=== PATIENT | female | born 1990 | race Two or more races ===

== ENCOUNTER 2016-09-09 19:44 | Emergency (ER) | payer BC ==
[~2016-09-09] VITALS: Ht 160 cm; Wt 89.5 kg
[~2016-09-09 19:44] MED LIST: ALBU8.5H3 INH; ASPI-826 PO; ERYTOPOI LEFT EYE; GUAI177L2 PO; HYDR-906 PO; IBUP-1542 PO; IBUP800T25 PO; LORA-777 PO; PRED20TA PO; PRENAT PO
[2016-09-09 20:32] VITALS: Ht 160 cm; Wt 89.5 kg
--- NOTE | 2016-09-09 23:25 | ERD ---
ER Documentation Chief Complaint Date/Time DATE: 09/09/16 TIME: 23:21 Chief Complaint LOW BACK PAIN AND DIZZINESS X 2 DAYS. HPI 25-year-old female presents to emergency department for complaints of left lower back pain started yesterday, patient no cough, slightly stewed up, started to have the pain afterwards. Patient discussed the pain as sharp pain, is worse upon movement accompanied with muscle spasms. Patient denies any incontinence. Patient denies any fever or chills. Patient denies hematuria or dysuria. Patient denies any direct trauma and affected area. Patient also is complaining of dizziness, describes it as lightheadedness, feels groggy, patient has on and off palpitations at times, has numbness and tingling all over the body at times. Patient verbalized being in a lot of stress lately also. Patient denies any chest pain. Patient denies any irregular heartbeat. Patient on exertion or dyspnea ROS All systems reviewed and are negative except as per history of present illness. Medications Home Meds Active Scripts Erythromycin* (Erythromycin* Ophthalmic) 1 Applic Oint, 1 APPLIC LEFT EYE QID for 7 Days, EA Prov:NICOLA GUEVARA PA-C 04/04/16 Aspirin/Acetaminophen/Caffeine (Excedrin Extra Strength Caplet) 1 Each Tablet, 1 EACH PO Q6, #30 TAB Prov:YANET LACEY PA-C 02/15/16 Erythromycin* (Erythromycin* Ophthalmic) 1 Applic Oint, 1 APPLIC LEFT EYE QID for 7 Days, EA Prov:YANET LACEY PA-C 02/15/16 Ibuprofen* (Motrin*) 600 Mg Tab, 600 MG PO Q6, #30 TAB Prov:MARGOT MANDUJANO PA-C 12/09/15 Vhpzzhtxzdd-Vgencvmflxrmljug-UF (Mucinex Severe Congest-Cough Liquid) 177 Ml Liquid, 20 ML PO Q8 for 10 Days, ML Prov:ARA FLORES NP 12/02/15 Hydrocodone Bit-Acetaminophen ([place]) 5-325 Mg Tablet, 1 TAB PO Q4H Y for PAIN, #14 TAB Prov:ARI RENO DO 10/31/15 Ibuprofen* (Motrin*) 800 Mg Tab, 800 MG PO TID, #30 TAB Prov:ARI RENO AAngel DO 10/31/15 Loratadine/Pseudoephedrine (CLARITIN-D 24 HOUR TABLET) 1 Each Tab.er.24h, 1 TAB PO DAILY, #7 TAB Prov:ARI RENO DO 10/31/15 Albuterol Sulfate* (Proair HFA*) 8.5 Gm Hfa.aer.ad, 2 PUFF INH Q4 for WHEEZING for 10 Days, INH Prov:JULIO CÉSAR TORRES MD 01/15/15 Prednisone* (Prednisone*) 20 Mg Tab, 40 MG PO DAILY for 4 Days, TAB START 01/16 Prov:JULIO CÉSAR TORRES MD 01/15/15 Reported Medications Multivit/Min/Fol Ac/Iron/Pren* ( S*) 1 Tab Tab, 1 TAB PO DAILY, TAB 01/14/15 Allergies Allergies: Coded Allergies: No Known Allergies (Verified Allergy, Mild, 01/14/15) PMhx/Soc History of Surgery: Yes (C section) Anesthesia Reaction: No Hx Neurological Disorder: No Hx Respiratory Disorders: Yes (ASTHMA) Hx Cardiac Disorders: No Hx Psychiatric Problems: No Hx Miscellaneous Medical Probl: No Hx Alcohol Use: No Hx Substance Use: No Hx Tobacco Use: No Smoking Status: Never smoker FmHx Family History: No coronary disease, No diabetes, No other Physical Exam Vitals Vital Signs Date Time Temp Pulse Resp B/P Pulse Ox O2 Delivery O2 Flow Rate FiO2 09/09/16 20:32 98.4 82 20 119/79 96 Physical Exam GENERAL: The patient is well developed and appropriate for usual state of health, in no apparent distress. CHEST: Clear to auscultation bilaterally. There are no rales, wheezes or rhonchi. HEART: Regular rate and rhythm. No murmurs, clicks, rubs or gallops. No S3 or S4. ABDOMEN: Soft, nontender and nondistended. Good bowel sounds. No rebound or guarding. No gross peritonitis. No gross organomegaly or masses. No Carrizales sign or McBurney point tenderness. BACK: No midline or flank tenderness. Muscle spasms noted in the paraspinal aspect of the left lumbar spine, able to do full range of motion without any restriction. EXTREMITIES: Equal pulses bilaterally. There is no peripheral clubbing, cyanosis or edema. No focal swelling or erythema. Full range of motion. Grossly neurovascularly intact. NEURO: Alert and oriented. Cranial nerves 2-12 intact. Motor strength in all 4 extremities with 5/5 strength. Sensation grossly intact. Normal speech and gait. Negative Romberg sign. Negative pronator drift. SKIN: There is no apparent rash or petechia. The skin is warm and dry. HEMATOLOGIC AND LYMPHATIC: There is no evidence of excessive bruising or lymphedema. No gross cervical, axillary, or inguinal lymphadenopathy. Result Diagram: [id number]/[id number] Results 24 hrs Laboratory Tests Test 09/09/16 23:20 09/09/16 23:40 09/09/16 23:50 Urine Color LT. YELLOW Urine Clarity CLEAR Urine pH 5.5 Urine Specific [place] >=1.030 Urine Ketones NEGATIVE Urine Nitrite NEGATIVE Urine Bilirubin NEGATIVE Urine Urobilinogen 0.2 E.U./dL Urine Leukocyte Esterase NEGATIVE Urine Hemoglobin NEGATIVE Urine Glucose NEGATIVE% Urine Total Protein NEGATIVE Bedside Urine pH (LAB) 5.0 Bedside Urine Protein (LAB) Negative Bedside Urine Glucose (UA) Negative Bedside Urine Ketones (LAB) Negative Bedside Urine Blood Negative Bedside Urine Nitrite (LAB) Negative Bedside Urine Leukocyte Esterase (L Negative White Blood Count 9.710^3/ul Red Blood Count 4.7010^6/ul Hemoglobin 13.5g/dl Hematocrit 40.4% Mean Corpuscular Volume 86.0fl Mean Corpuscular Hemoglobin 28.7pg Mean Corpuscular Hemoglobin Concent 33.4g/dl Red Cell Distribution Width 11.8% Platelet Count 70807^3/UL Mean Platelet Volume 11.6fl Neutrophils % 60.8% Lymphocytes % 31.5% Monocytes % 6.2% Eosinophils % 1.0% Basophils % 0.2% Nucleated Red Blood Cells % 0.0/100WBC Neutrophils # 5.910^3/ul Lymphocytes # 3.110^3/ul Monocytes # 0.610^3/ul Eosinophils # 0.110^3/ul Basophils # 0.010^3/ul Nucleated Red Blood Cells # 0.010^3/ul Sodium Level 137mmol/L Potassium Level 4.0mmol/L Chloride Level 104mmol/L Carbon Dioxide Level 25mmol/L Anion Gap 12 Blood Urea Nitrogen 10mg/dl Creatinine 0.63mg/dl Glucose Level 98mg/dl Calcium Level 9.8mg/dl Total Bilirubin 1.1mg/dl Direct Bilirubin 0.00mg/dl Indirect Bilirubin 1.1mg/dl Aspartate Amino Transf (AST/SGOT) 27IU/L Alanine Aminotransferase (ALT/SGPT) 21IU/L Alkaline Phosphatase 87IU/L Total Protein 9.3g/dl Albumin 4.8g/dl Globulin 4.50g/dl Albumin/Globulin Ratio 1.06 EKG was done, read by me and is normal sinus rhythm at a rate of74, normal axis , there is no ST changes or changes in the EKG that indicates any cardiac emergencies at this time. Patient's EKG was also reviewed by Dr. Angulo. Impression: no acute findings on EKG Procedures/MDM Medical Decision Making: Patient's pain is most likely consistent with a back muscle strain. There is no suspicion for neurovascular compromise. Patient has intact sensation and circulation of the affected extremity. There is low suspicion for septic arthritis. Patient does not have any fever. Radiology exams of affected area not indicated at this time. Patient's lightheadedness and dizziness nonspecific at this time. There is low suspicion for neurological emergencies at this time since patients neurologic exam is normal. Patient did not have any altered level consciousness, vomiting, changes in balance or memory did not have any head injury.There is low suspicion for cardiopulmonary emergencies at this time. Patient has low risk factors. EKG is normal, there is no changes in the EKG that indicates cardiac emergencies.There is low suspicion for aortic aneurysm, myocardial infarction, pneumothorax, pleural effusion, pulmonary embolism, or any other cardiopulmonary emergencies at this time. Cardiac markers are normal. Disposition: Home. Patient is given prescription for ibuprofen for pain, [place] for severe pain, Flexeril for muscle spasms. Patient was advised to avoid heavy lifting. Patient was advised that if symptoms are worse, numbness, tingling, high fever, unable to move joint, worsening symptoms, to return to emergency department immediately. Otherwise, patient is advised to follow up with the primary care doctor in 5-7 days for reevaluation of symptoms. Departure Diagnosis: Primary Impression: Back pain Back pain location: low back pain Chronicity: acute Back pain laterality: right Sciatica presence: without sciatica Qualified Code: M54.5 - Acute right-sided low back pain without sciatica Additional Impression: Lightheaded Condition: Stable Patient Instructions: Back Pain (Acute Or Chronic), Dizziness, Unk Cause Additional Instructions: . Patient is given prescription for ibuprofen for pain, [place] for severe pain, Flexeril for muscle spasms. Patient was advised to avoid heavy lifting. Patient was advised that if symptoms are worse, numbness, tingling, high fever, unable to move joint, worsening symptoms, to return to emergency department immediately. Otherwise, patient is advised to follow up with the primary care doctor in 5-7 days for reevaluation of symptoms. CRALOS TELLES NP September 09, 2016 23:25
[2016-09-09 23:40] LABS: URINE BLOOD (Dip) POC Negative (NEGATIVE)
[2016-09-10 00:14] LABS: ADD UMIC NO; URINE BILIRUBIN (Dip) NEGATIVE (NEGATIVE); URINE BLOOD (Dip) NEGATIVE (NEGATIVE); URINE COLOR LT. YELLOW (YELLOW); URINE GLUCOSE (Dip) NEGATIVE (NEGATIVE); URINE KETONES (Dip) NEGATIVE (NEGATIVE); URINE LEUKOCYTE ESTERASE (Dip) NEGATIVE (NEGATIVE); URINE NITRITE (Dip) NEGATIVE (NEGATIVE); URINE TOTAL PROTEIN (Dip) NEGATIVE (NEGATIVE); URINE UROBILINOGEN (Dip) 0.2 E.U./dL (0.1-1.0)
[2016-09-10 00:17] LABS: ADD SCAN DIFF NO
[2016-09-10 00:18] LABS: BASOPHILS % 0.2 % (0.0-2.0); EOSINOPHILS # 0.1 10^3/ul (0.0-0.5); HEMATOCRIT 40.4 % (37.0-47.0); HEMOGLOBIN 13.5 g/dl (12.0-16.0); LYMPHOCYTES # 3.1 10^3/ul (0.8-2.9); LYMPHOCYTES % 31.5 % (15.0-51.0); MEAN CORPUSCULAR HEMOGLOBIN 28.7 pg (29.0-33.0); MEAN CORPUSCULAR HGB CONC 33.4 g/dl (32.0-37.0); MEAN PLATELET VOLUME 11.6 fl (7.4-10.4); MONOCYTE # 0.6 10^3/ul (0.3-0.9); MONOCYTES % 6.2 % (0.0-11.0); NEUTROPHIL # 5.9 10^3/ul (1.6-7.5); NEUTROPHILS % 60.8 % (39.0-77.0); PLATELET COUNT 299 10^3/UL (140-415); RED CELL DISTRIBUTION WIDTH 11.8 % (11.5-14.5); WHITE BLOOD COUNT 9.7 10^3/ul (4.8-10.8)
[2016-09-10 00:39] LABS: ALBUMIN 4.8 g/dl (3.3-4.9); ALBUMIN/GLOBULIN RATIO 1.06; BILIRUBIN,INDIRECT 1.1 mg/dl (0-1.1); BILIRUBIN,TOTAL 1.1 mg/dl (0.2-1.3); CALCIUM 9.8 mg/dl (8.4-10.2); CREATININE 0.63 mg/dl (0.44-1.00); TOTAL PROTEIN 9.3 g/dl (6.1-8.1)
[2016-09-10] MEDS ORDERED: IBUP-1542 PO (01:10)
[2016-09-10] MEDS ORDERED: HYDR-906 PO (01:10)
[2016-09-10] MEDS ORDERED: CYCL-319 PO (01:10)
[2016-09-10 01:17] VITALS: BP 136/90; PULSE 94; RESP 18
== END 2016-09-10 01:19 | disposition home or self-care (01) ==
LOC: FTE 19:44
DX: M54.5 Low back pain (principal); J45.909 Unspecified asthma, uncomplicated; R42 Dizziness and giddiness
CPT/HCPCS: 36415; 80053; 81003; 85025; 93005

== ENCOUNTER 2016-12-18 00:15 | Emergency (ER) | payer BC ==
[~2016-12-18] VITALS: Ht 170.2 cm; Wt 92.5 kg
[~2016-12-18 00:15] MED LIST changes: +CYCL-319 PO
[2016-12-18 00:21] VITALS: Ht 170.2 cm; Wt 92.5 kg
[2016-12-18] MEDS ORDERED: GUAI120S26 PO (01:42)
[2016-12-18] MEDS ORDERED: CETI10CA PO (01:42)
[2016-12-18] MEDS ORDERED: FLUT9.9S NASAL (01:42)
[2016-12-18] MEDS ORDERED: IBUP-1542 PO (01:42)
[2016-12-18] MEDS ORDERED: ALBU8.5H3 INH (01:42)
[2016-12-18 01:55] VITALS: BP 128/78; PULSE 73; RESP 19; TEMP 98.2
--- NOTE | 2016-12-18 01:55 | ERD ---
ER Documentation Chief Complaint Date/Time DATE: 12/18/16 TIME: 01:53 Chief Complaint cough w/ on and off fever x 2 days HPI 26-year-old female presents here in emergency department for complaints of cough , runny nose nasal congestion on and off fever for 2 days. Patient has been having dry cough, does not cough up any phlegm or blood. Patient denies any shortness of breath or wheezing. Patient any sick with the same symptoms. Patient did not take any medications to help with symptoms. Patient denies any chest pain. Patient denies any dyspnea on exertion or dyspnea on lying down. Patient denies any dizziness. ROS All systems reviewed and are negative except as per history of present illness. Medications Home Meds Active Scripts Ibuprofen* (Motrin*) 600 Mg Tab, 600 MG PO Q6H Y for PAIN AND OR ELEVATED TEMP, #30 TAB Prov:CARLOS TELLES NP 12/18/16 Albuterol Sulfate* (Proair HFA*) 8.5 Gm Hfa.aer.ad, 2 PUFF INH Q4H Y for WHEEZING AND SOB, #1 INHALER Prov:CARLOS TELLES NP 12/18/16 Fluticasone Propionate (Flonase Allergy Relief) 9.9 Ml [place].susp, 1 SPRAY NASAL BID, #1 BOTTLE TO EACH NOSTRIL Prov:CARLOS TELLES NP 12/18/16 Cetirizine Hcl* (Zyrtec*) 10 Mg Capsule, 10 MG PO DAILY, #30 TAB.CHEW Prov:CARLOS TELLES NP 12/18/16 Ygizdebozyw-B-Qjoycuskpl Hb* (Guaifenesin* DM Syrup) 120 Ml Syrup, 10 ML PO Q4H Y for COUGH, #120 ML Prov:CARLOS TELLES NP 12/18/16 Cyclobenzaprine Hcl* (Cyclobenzaprine Hcl*) 10 Mg Tablet, 10 MG PO TID, #15 TAB Prov:CARLOS TELLES NP 09/10/16 Hydrocodone/Acetaminophen ([place] 5-325 Tablet) 1 Each Tablet, 1 TAB PO Q6H Y for PAIN, #20 TAB Prov:CARLOS TELLES NP 09/10/16 Ibuprofen* (Motrin*) 600 Mg Tab, 600 MG PO Q6H Y for PAIN AND OR ELEVATED TEMP, #30 TAB Prov:CARLOS TELLES MEDICAL BILLING AND CODING INSTRUCTOR 09/10/16 Erythromycin* (Erythromycin* Ophthalmic) 1 Applic Oint, 1 APPLIC LEFT EYE QID for 7 Days, EA Prov:NICOLA GUEVARAC 04/04/16 Aspirin/Acetaminophen/Caffeine (Excedrin Extra Strength Caplet) 1 Each Tablet, 1 EACH PO Q6, #30 TAB Prov:YANET LACEYC 02/15/16 Erythromycin* (Erythromycin* Ophthalmic) 1 Applic Oint, 1 APPLIC LEFT EYE QID for 7 Days, EA Prov:YANET LACEY PA-C 02/15/16 Ibuprofen* (Motrin*) 600 Mg Tab, 600 MG PO Q6, #30 TAB Prov:MARGOT MANDUJANOC 12/09/15 Cmflbjwkmpa-Shdxvurqknhlrpqa-ID (Mucinex Severe Congest-Cough Liquid) 177 Ml Liquid, 20 ML PO Q8 for 10 Days, ML Prov:ARA FLORES MEDICAL BILLING AND CODING INSTRUCTOR 12/02/15 Hydrocodone Bit-Acetaminophen ([place]) 5-325 Mg Tablet, 1 TAB PO Q4H Y for PAIN, #14 TAB Prov:ARI RENO DO 10/31/15 Ibuprofen* (Motrin*) 800 Mg Tab, 800 MG PO TID, #30 TAB Prov:ARCHIE RENOSTJUANS AAngel DO 10/31/15 Loratadine/Pseudoephedrine (CLARITIN-D 24 HOUR TABLET) 1 Each Tab.er.24h, 1 TAB PO DAILY, #7 TAB Prov:ARI RENO DO 10/31/15 Albuterol Sulfate* (Proair HFA*) 8.5 Gm Hfa.aer.ad, 2 PUFF INH Q4 for WHEEZING for 10 Days, INH Prov:JULIO CÉSAR TORRES MD 01/15/15 Prednisone* (Prednisone*) 20 Mg Tab, 40 MG PO DAILY for 4 Days, TAB START 01/16 Prov:JULIO CÉSAR TORRES MD 01/15/15 Reported Medications Multivit/Min/Fol Ac/Iron/Pren* ( S*) 1 Tab Tab, 1 TAB PO DAILY, TAB 01/14/15 Allergies Allergies: Coded Allergies: No Known Allergies (Verified Allergy, Mild, 01/14/15) PMhx/Soc History of Surgery: Yes (C section) Anesthesia Reaction: No Hx Neurological Disorder: No Hx Respiratory Disorders: Yes (ASTHMA) Hx Cardiac Disorders: No Hx Psychiatric Problems: No Hx Miscellaneous Medical Probl: No Hx Alcohol Use: No Hx Substance Use: No Hx Tobacco Use: No Smoking Status: Never smoker FmHx Family History: No coronary disease, No diabetes, No other Physical Exam Vitals Vital Signs Date Time Temp Pulse Resp B/P Pulse Ox O2 Delivery O2 Flow Rate FiO2 12/18/16 00:21 99.5 97 20 120/59 99 Physical Exam GENERAL: The patient is well developed and appropriate for usual state of health, in no apparent distress. CHEST: Clear to auscultation bilaterally. There are no rales, wheezes or rhonchi. HEART: Regular rate and rhythm. No murmurs, clicks, rubs or gallops. No S3 or S4. ABDOMEN: Soft, nontender and nondistended. Good bowel sounds. No rebound or guarding. No gross peritonitis. No gross organomegaly or masses. No Carrizales sign or McBurney point tenderness. BACK: No midline or flank tenderness. EXTREMITIES: Equal pulses bilaterally. There is no peripheral clubbing, cyanosis or edema. No focal swelling or erythema. Full range of motion. Grossly neurovascularly intact. NEURO: Alert and oriented. Cranial nerves 2-12 intact. Motor strength in all 4 extremities with 5/5 strength. Sensation grossly intact. Normal speech and gait. SKIN: There is no apparent rash or petechia. The skin is warm and dry. HEMATOLOGIC AND LYMPHATIC: There is no evidence of excessive bruising or lymphedema. No gross cervical, axillary, or inguinal lymphadenopathy. Results 24 hrs Current Medications Medications (Trade) Dose Ordered Sig/Dianne Route PRN Reason Start Time Stop Time Status Last Admin Dose Admin Ibuprofen (Motrin) 600 mg ONCE ONCE PO 12/18/16 02:00 12/18/16 02:01 12/18/16 01:49 Patient was given medicines for fever control here in the emergency department. After treatment, patient temperature improved and lower. Patient appears well and is hemodynamically stable. Procedures/MDM Medical Decision Making: Patient symptoms are most likely consistent with acute bronchitis, which viral in origin. There is low suspicion for Pneumonia at this time since patients lungs sounds are clear, patient O2 saturation is normal and patient doesnt show any respiratory distress. Radiology exam is not indicated at this time. There is low suspicion for other cardiopulmonary emergencies at this time such as CHF, Pulmonary Embolism, Pneumothorax, Aortic Aneurysm or any other cardiopulmonary emergencies at this time. There is low suspicion for sepsis. Patient appears well and is hemodynamically stable. Fever is controlled with medicines. Disposition: Home. Condition: Stable Prescriptions: Guaifenesin DM Zyrtec ibuprofen albuterol Instructions: Patient is advised to take medications as prescribed. Patient is advised to rest. Patient advised to increase fluid intake, do humidifier at home and if possible, do salt water gargles. Patient is advised that if symptoms are worse, shortness of breath, uncontrolled fever, stridor, vomiting, worst signs and symptoms to return to emergency department immediately. Otherwise, patient is advised to follow up with primary doctor in 5-7 days. Departure Diagnosis: Primary Impression: Acute bronchitis Bronchitis organism: unspecified organism Qualified Code: J20.9 - Acute bronchitis, unspecified organism Condition: Stable Patient Instructions: Bronchitis, No Antibiotic (Adult) CARLOS TELLES NP Dec 18, 2016 01:55
[2016-12-18] MEDS ORDERED: IBUPROFEN 600 MG TAB PO ONE (02:00)
== END 2016-12-18 01:55 | disposition home or self-care (01) ==
LOC: FTE 00:15
DX: J20.9 Acute bronchitis, unspecified (principal); J45.909 Unspecified asthma, uncomplicated; Z79.82 Long term (current) use of aspirin
CPT/HCPCS: Z7502; Z7610; 99283

== ENCOUNTER 2017-10-02 23:43 | Emergency (ER) | END 2017-10-03 00:53 | disposition home or self-care (01) ==

== ENCOUNTER 2018-01-31 20:17 | Emergency (ER) | END 2018-01-31 23:01 | disposition home or self-care (01) ==

== ENCOUNTER 2018-02-18 23:42 | Emergency (ER) | END 2018-02-19 04:18 | disposition home or self-care (01) ==

== ENCOUNTER 2018-04-04 16:49 | Emergency (ER) | END 2018-04-04 17:27 | disposition home or self-care (01) ==

== ENCOUNTER 2018-07-07 20:30 | Emergency (ER) | payer BC ==
[~2018-07-07] VITALS: Wt 96.8 kg
[~2018-07-07 20:30] MED LIST changes: -ALBU8.5H3 INH; +ALBU8.5H8 INH; +AZIT250T PO; +CEPH-443 PO; +CETI10CA PO; -CYCL-319 PO; +CYCL10TA7 PO; +FLUT9.9S NASAL; +GUAI120S26 PO; +HYDR-4011 PO; +HYDR-843 PO; -IBUP800T25 PO; +IBUP800T48 PO; +METO10TA92 PO; +ONDA4TAB14 PO; +SULF1TAB31 PO
[2018-07-07 21:06] VITALS: BP 132/74; PULSE 101; RESP 18
[2018-07-08] MEDS ORDERED: ERYT1OIN6 LEFT EYE (00:17)
--- NOTE | 2018-07-08 00:21 | ERD ---
ER Documentation Chief Complaint Chief Complaint L UPPER EYELID SWELLING X'S 2 DAYS HPI 27-year-old female presents with swelling to her left upper eyelid that she has had for about a week. She has been applying warm compresses but is not getting any better. She has had this in the past and states she had to have it drained and she would like me to drain it. She has no redness or swelling to her eyes. No fevers. No drainage in her eyes. ROS All systems reviewed and are negative except as per history of present illness. Medications Home Meds Active Scripts Erythromycin Base (Erythromycin) 1 Gm Oint...g., 1 APPLIC LEFT EYE QID for 7 Da ys Prov:YANET LACEY PA-C 07/08/18 Albuterol Sulfate* (Proair HFA*) 8.5 Gm Hfa.aer.ad, 2 PUFF INH Q4, #1 INHALER Prov:NICOLA GUEVARA PA-C 04/04/18 Azithromycin* (Zithromax*) 250 Mg Tablet, 250 MG PO .BENNYCK DIRECTED, #6 TAB TAKE 500 MG (2 TABS) THE FIRST DAY THEN 250 MG (1 TAB) DAYS 2-5 Prov:NICOLA GUEVARA PA-C 04/04/18 Metoclopramide* (Reglan*) 10 Mg Tablet, 10 MG PO Q6 PRN for NAUSEA AND/OR VOMITING, #10 TAB Prov:NICOLA GUEVARA PA-C 02/19/18 Ondansetron (Ondansetron Odt) 4 Mg Tab.rapdis, 4 MG PO Q6H PRN for NAUSEA AND/OR VOMITING, #10 TAB Prov:NICOLA GUEVARA PA-C 02/19/18 Cephalexin* (Keflex*) 500 Mg Capsule, 500 MG PO TID for 7 Days, #21 CAP Prov:SIMRAN,FRANCISCO 01/31/18 Ondansetron (Ondansetron Odt) 4 Mg Tab.rapdis, 4 MG PO Q6H PRN for NAUSEA AND/OR VOMITING, #10 TAB Prov:SIMRAN,FRANCISCO 01/31/18 Albuterol Sulfate* (Proair HFA*) 8.5 Gm Hfa.aer.ad, 2 PUFF INH Q4, #1 INHALER Prov:FRANCISCO KHALIL 01/31/18 Cephalexin* (Keflex*) 500 Mg Capsule, 500 MG PO QID for 10 Days, CAP Prov:CARLOS TELLES NP 10/03/17 Sulfamethoxazole/Trimethoprim* (Bactrim Ds* Tablet) 1 Each Tablet, 1 TAB PO BID, #20 TAB Prov:CARLOS TELLES NP 10/03/17 Hydroxyzine Hcl* (Hydroxyzine Hcl*) 25 Mg Tablet, 25 MG PO Q8H PRN for ITCHING, #30 TAB Prov:CARLOS TELLES NP 10/03/17 Ibuprofen* (Motrin*) 600 Mg Tab, 600 MG PO Q6H PRN for PAIN AND OR ELEVATED TEMP, #30 TAB Prov:CARLOS TELLES NP 12/18/16 Albuterol Sulfate* (Proair HFA*) 8.5 Gm Hfa.aer.ad, 2 PUFF INH Q4H PRN for WHEEZING AND SOB, #1 INHALER Prov:CARLOS TELLES NP 12/18/16 Fluticasone Propionate (Flonase Allergy Relief) 9.9 Ml [place].susp, 1 SPRAY NASAL BID, #1 BOTTLE TO EACH NOSTRIL Prov:CARLOS TELLES NP 12/18/16 Cetirizine Hcl* (Zyrtec*) 10 Mg Capsule, 10 MG PO DAILY, #30 TAB.CHEW Prov:CARLOS TELLES NP 12/18/16 Hxjxrnheiot-V-Qempypzohp Hb* (Guaifenesin* DM Syrup) 120 Ml Syrup, 10 ML PO Q4H PRN for COUGH, #120 ML Prov:CARLOS TELLES NP 12/18/16 Cyclobenzaprine Hcl* (Cyclobenzaprine Hcl*) 10 Mg Tablet, 10 MG PO TID, #15 TAB Prov:CARLOS TELLES NP 09/10/16 Hydrocodone/Acetaminophen ([place] 5-325 Tablet) 1 Each Tablet, 1 TAB PO Q6H PRN for PAIN, #20 TAB Prov:CARLOS TELLES NP 09/10/16 Ibuprofen* (Motrin*) 600 Mg Tab, 600 MG PO Q6H PRN for PAIN AND OR ELEVATED TEMP, #30 TAB Prov:BOLACARLOS YU NP 09/10/16 Erythromycin* (Erythromycin* Ophthalmic) 1 Applic Oint, 1 APPLIC LEFT EYE QID for 7 Days, EA Prov:NICOLA GUEVARAC 04/04/16 Aspirin/Acetaminophen/Caffeine (Excedrin Extra Strength Caplet) 1 Each Tablet, 1 EACH PO Q6, #30 TAB Prov:YANET LACEY PA-C 02/15/16 Erythromycin* (Erythromycin* Ophthalmic) 1 Applic Oint, 1 APPLIC LEFT EYE QID for 7 Days, EA Prov:YANET LACEY PA-C 02/15/16 Ibuprofen* (Motrin*) 600 Mg Tab, 600 MG PO Q6, #30 TAB Prov:MARGOT MANDUJANOC 12/09/15 Ukpgzewjqoa-Bwoopihocomoqevq-CD (Mucinex Severe Congest-Cough Liquid) 177 Ml Liquid, 20 ML PO Q8 for 10 Days, ML Prov:ARA FLORES NP 12/02/15 Hydrocodone Bit-Acetaminophen ([place]) 5-325 Mg Tablet, 1 TAB PO Q4H PRN for PAIN, #14 TAB Prov:ARI RENO DO 10/31/15 Ibuprofen* (Motrin*) 800 Mg Tab, 800 MG PO TID, #30 TAB Prov:ARI RENO DO 10/31/15 Loratadine/Pseudoephedrine (CLARITIN-D 24 HOUR TABLET) 1 Each Tab.er.24h, 1 TAB PO DAILY, #7 TAB Prov:ARI RENO DO 10/31/15 Albuterol Sulfate* (Proair HFA*) 8.5 Gm Hfa.aer.ad, 2 PUFF INH Q4 for WHEEZING for 10 Days, INH Prov:JULIO CÉSAR TORRES MD 01/15/15 Prednisone* (Prednisone*) 20 Mg Tab, 40 MG PO DAILY for 4 Days, TAB START 01/16 Prov:JULIO CÉSAR TORRES MD 01/15/15 Reported Medications Multivit/Min/Fol Ac/Iron/Pren* ( S*) 1 Tab Tab, 1 TAB PO DAILY, TAB 01/14/15 Allergies Allergies: Coded Allergies: No Known Allergies (Verified Allergy, Mild, 04/04/18) PMhx/Soc History of Surgery: Yes (c section) Anesthesia Reaction: No Hx Neurological Disorder: No Hx Respiratory Disorders: Yes (asthma) Hx Cardiac Disorders: No Hx Psychiatric Problems: No Hx Miscellaneous Medical Probl: No Hx Alcohol Use: No Hx Substance Use: No Hx Tobacco Use: No FmHx Family History: No diabetes Physical Exam Vitals Vital Signs Date Temp Pulse Resp B/P (MAP) Pulse Ox O2 O2 Flow FiO2 Time Delivery Rate 07/07/18 98.6 101 18 132/74 98 21:06 (93) Physical Exam INITIAL VITAL SIGNS: Reviewed by me GENERAL: Awake, alert and oriented x 4, well appearing, nontoxic, speaking in full sentences. No acute distress HEAD: Atraumatic NECK: Supple. No masses. Full range of motion. No meningismus. No midline tenderness. EYES: EOMI. PERRL. Stye on left upper eye lid RESPIRATORY: Clear to auscultation bilaterally. Symmetric chest wall rise. No wheezing or rales. No accessory muscle use. CV: Regular rate and rhythm. No murmurs, rubs, or gallops. Procedures/MDM Patient has a stye. Recommended warm compresses. Erythromycin ophthalmic ointment given outpatient follow-up with [facility] given. Patient counseled regarding my diagnostic impression and care plan. Prior to discharge all questions answered. Pt agrees with treatment plan and understands strict return precautions. Pt is instructed to follow up with primary care provider within 24-48 hours. Precautionary instructions provided including instructions to return to the ER if not improving or for any worsening or changing symptoms or concerns. Departure Diagnosis: Primary Impression: Stye Condition: Stable Patient Instructions: Sty Referrals: [facility] Hours: Fri - Fri 9:00 AM - 5:00 PM Additional Instructions: Call your primary care doctor TOMORROW for an appointment during the next 1-2 days.See the doctor sooner or return here if your condition worsens before your appointment time. YANET LACEY PA-C Jul 08, 2018 00:21
== END 2018-07-08 00:43 | disposition home or self-care (01) ==
LOC: FTE 20:30
DX: H00.014 Hordeolum externum left upper eyelid (principal); J45.909 Unspecified asthma, uncomplicated; Z79.82 Long term (current) use of aspirin
CPT/HCPCS: 99283

== ENCOUNTER 2018-07-26 00:20 | Emergency (ER) | payer BC ==
[~2018-07-26] VITALS: Ht 160 cm; Wt 98.5 kg
[~2018-07-26 00:20] MED LIST changes: +ERYT1OIN6 LEFT EYE
[2018-07-26 00:31] VITALS: Ht 160 cm; Wt 98.5 kg
[2018-07-26] MEDS ORDERED: HYDR25SU23 PR (05:17)
[2018-07-26] MEDS ORDERED: HYDR-4011 PO (05:17)
[2018-07-26] MEDS ORDERED: HYDROCODONE/APAP (5/325) TAB PO ONE (05:30)
[2018-07-26 05:36] VITALS: BP 128/70; PULSE 88; RESP 16
--- NOTE | 2018-07-26 07:40 | ERD ---
ER Documentation Chief Complaint Chief Complaint painful abscess around her rectum x 2 days HPI This is a 27-year-old 33-week gestational female who presents to the ED with complaints of a painful bump near her rectum area. She states the area first started feeling itchy a few days ago and and has since noticed an increasingly enlarged bump in the same area. Pain is worse when sitting or straining. She denies any constipation. Denies any abdominal pain, nausea, vomiting or any other symptoms. Patient denies any history of same. ROS All systems reviewed and are negative except as per history of present illness. Medications Home Meds Active Scripts Hydrocortisone Acetate (Anusol-Hc) 25 Mg Supp.rect, 1 SUPP [place] BID PRN for HEMORROID PAIN/ITCHING, #12 SUPP.RECT Prov:MONICA HOWARD PA-C 07/26/18 Erythromycin Base (Erythromycin) 1 Gm Oint...g., 1 APPLIC LEFT EYE QID for 7 Days Prov:YANET LACEY PA-C 07/08/18 Albuterol Sulfate* (Proair HFA*) 8.5 Gm Hfa.aer.ad, 2 PUFF INH Q4, #1 INHALER Prov:NICOLA GUEVARA PA-C 04/04/18 Azithromycin* (Zithromax*) 250 Mg Tablet, 250 MG PO .CANDI DIRECTED, #6 TAB TAKE 500 MG (2 TABS) THE FIRST DAY THEN 250 MG (1 TAB) DAYS 2-5 Prov:NICOLA GUEVARA PA-C 04/04/18 Metoclopramide* (Reglan*) 10 Mg Tablet, 10 MG PO Q6 PRN for NAUSEA AND/OR VOMITING, #10 TAB Prov:NICOLA GUEVARA PA-C 02/19/18 Ondansetron (Ondansetron Odt) 4 Mg Tab.rapdis, 4 MG PO Q6H PRN for NAUSEA AND/OR VOMITING, #10 TAB Prov:NICOLA GUEVARA PA-C 02/19/18 Cephalexin* (Keflex*) 500 Mg Capsule, 500 MG PO TID for 7 Days, #21 CAP Prov:SIMRANFRANCISCO 01/31/18 Ondansetron (Ondansetron Odt) 4 Mg Tab.rapdis, 4 MG PO Q6H PRN for NAUSEA AND/OR VOMITING, #10 TAB Prov:SIMRAN,FRANCISCO 01/31/18 Albuterol Sulfate* (Proair HFA*) 8.5 Gm Hfa.aer.ad, 2 PUFF INH Q4, #1 INHALER Prov:SIMRAN,FRANCISCO 01/31/18 Cephalexin* (Keflex*) 500 Mg Capsule, 500 MG PO QID for 10 Days, CAP Prov:CARLOS TELLES NP 10/03/17 Sulfamethoxazole/Trimethoprim* (Bactrim Ds* Tablet) 1 Each Tablet, 1 TAB PO BID, #20 TAB Prov:CARLOS TELLES NP 10/03/17 Hydroxyzine Hcl* (Hydroxyzine Hcl*) 25 Mg Tablet, 25 MG PO Q8H PRN for ITCHING, #30 TAB Prov:CARLOS TELLES NP 10/03/17 Ibuprofen* (Motrin*) 600 Mg Tab, 600 MG PO Q6H PRN for PAIN AND OR ELEVATED TEMP, #30 TAB Prov:CARLOS TELLES NP 12/18/16 Albuterol Sulfate* (Proair HFA*) 8.5 Gm Hfa.aer.ad, 2 PUFF INH Q4H PRN for WHEEZING AND SOB, #1 INHALER Prov:CARLOS TELLES NP 12/18/16 Fluticasone Propionate (Flonase Allergy Relief) 9.9 Ml [place].susp, 1 SPRAY NASAL BID, #1 BOTTLE TO EACH NOSTRIL Prov:CARLOS TELLES NP 12/18/16 Cetirizine Hcl* (Zyrtec*) 10 Mg Capsule, 10 MG PO DAILY, #30 TAB.CHEW Prov:CARLOS TELLES NP 12/18/16 Kehruqhgciy-V-Xgirlfruvd Hb* (Guaifenesin* DM Syrup) 120 Ml Syrup, 10 ML PO Q4H PRN for COUGH, #120 ML Prov:CARLOS TELLES NP 12/18/16 Cyclobenzaprine Hcl* (Cyclobenzaprine Hcl*) 10 Mg Tablet, 10 MG PO TID, #15 TAB Prov:CARLOS TELLES REVENUE CYCLE ANALYST 09/10/16 Hydrocodone/Acetaminophen ([place] 5-325 Tablet) 1 Each Tablet, 1 TAB PO Q6H PRN for PAIN, #20 TAB Prov:CARLOS TELLES REVENUE CYCLE ANALYST 09/10/16 Ibuprofen* (Motrin*) 600 Mg Tab, 600 MG PO Q6H PRN for PAIN AND OR ELEVATED TEMP, #30 TAB Prov:CARLOS TELLES REVENUE CYCLE ANALYST 09/10/16 Erythromycin* (Erythromycin* Ophthalmic) 1 Applic Oint, 1 APPLIC LEFT EYE QID for 7 Days, EA Prov:NICOLA GUEVARA PA-C 04/04/16 Aspirin/Acetaminophen/Caffeine (Excedrin Extra Strength Caplet) 1 Each Tablet, 1 EACH PO Q6, #30 TAB Prov:YANET LACEY PA-C 02/15/16 Erythromycin* (Erythromycin* Ophthalmic) 1 Applic Oint, 1 APPLIC LEFT EYE QID for 7 Days, EA Prov:YANET LACEY PA-C 02/15/16 Ibuprofen* (Motrin*) 600 Mg Tab, 600 MG PO Q6, #30 TAB Prov:MARGOT MANDUJANO PA-C 12/09/15 Txzjqnnrmnn-Lyiktqhhjnosdkuu-ED (Mucinex Severe Congest-Cough Liquid) 177 Ml Liquid, 20 ML PO Q8 for 10 Days, ML Prov:ARA FLORES REVENUE CYCLE ANALYST 12/02/15 Hydrocodone Bit-Acetaminophen ([place]) 5-325 Mg Tablet, 1 TAB PO Q4H PRN for PAIN, #14 TAB Prov:ARI RENO DO 10/31/15 Ibuprofen* (Motrin*) 800 Mg Tab, 800 MG PO TID, #30 TAB Prov:ARCHIE RENOSTNIKA AAngel DO 10/31/15 Loratadine/Pseudoephedrine (CLARITIN-D 24 HOUR TABLET) 1 Each Tab.er.24h, 1 TAB PO DAILY, #7 TAB Prov:ARCHIE RENOSTNIKA AAngel DO 10/31/15 Albuterol Sulfate* (Proair HFA*) 8.5 Gm Hfa.aer.ad, 2 PUFF INH Q4 for WHEEZING for 10 Days, INH Prov:JULIO CÉSAR TORRES MD 01/15/15 Prednisone* (Prednisone*) 20 Mg Tab, 40 MG PO DAILY for 4 Days, TAB START 01/16 Prov:JULIO CÉSAR TORRES MD 01/15/15 Reported Medications Multivit/Min/Fol Ac/Iron/Pren* ( S*) 1 Tab Tab, 1 TAB PO DAILY, TAB 01/14/15 Allergies Allergies: Coded Allergies: No Known Allergies (Verified Allergy, Mild, 04/04/18) PMhx/Soc History of Surgery: Yes (c section) Anesthesia Reaction: No Hx Neurological Disorder: No Hx Respiratory Disorders: Yes (asthma) Hx Cardiac Disorders: No Hx Psychiatric Problems: No Hx Miscellaneous Medical Probl: No Hx Alcohol Use: No Hx Substance Use: No Hx Tobacco Use: No Smoking Status: Never smoker Physical Exam Vitals Vital Signs Date Temp Pulse Resp B/P (MAP) Pulse Ox O2 O2 Flow FiO2 Time Delivery Rate 07/26/18 98.0 88 16 128/70 99 Room Air 05:36 (89) 07/26/18 98.0 114 20 134/76 98 00:31 (95) Physical Exam Const: No acute distress Head: Atraumatic Eyes: Normal Conjunctiva ENT: Normal External Ears, Nose and Mouth. Abd: Soft, non tender, non distended. Normal bowel sounds Skin: + Palpable 3 cm edematous nodule near the anal verge, consistent with an external hemorrhoid. Moderate pain with palpation. No surrounding erythema. No discharge. Back: No midline or flank tenderness Neur: Awake and alert Psych: Normal Mood and Affect Results 24 hrs Current Medications Medications Dose Sig/Dianne Start Time Status Last (Trade) Ordered Route PRN Stop Time Admin Dose Reason Admin 1 tab ONCE ONCE 07/26/18 DC 07/26/18 Acetaminophen PO 05:30 05:18 / 07/26/18 05:31 Hydrocodone Bitart ([place] (5/325)) Procedures/MDM 27-year-old 33-week gestational female presents with an external, painful hemorrhoid for the past 2 days. There is no evidence of anal abscess, perirectal abscess, fissures, fistula, or any other infectious process. No need for incision and drainage at this time. Patient will be treated on an outpatient basis with a prescription for Anusol and laxatives. I recommended soaking in a warm tub for 10-15 minutes 4 times a day. Pain here was controlled status post one tablet of [place] which patient requested. I recommend following up with either her regular doctor or PACS SPECIALIST in 1 week, otherwise return to the ED for any new or worsening symptoms. Departure Diagnosis: Primary Impression: External hemorrhoid Condition: Stable Patient Instructions: Hemorrhoids Referrals: [facility] YOU HAVE RECEIVED A MEDICAL SCREENING EXAM AND THE RESULTS INDICATE THAT YOU DO NOT HAVE A CONDITION THAT REQUIRES URGENT TREATMENT IN THE EMERGENCY DEPARTMENT. FURTHER EVALUATION AND TREATMENT OF YOUR CONDITION CAN WAIT UNTIL YOU ARE SEEN IN YOUR DOCTORS OFFICE WITHIN THE NEXT 1-2 DAYS. IT IS YOUR RESPONSIBILITY TO MAKE AN APPOINTMENT FOR FOLOW-UP CARE. IF YOU HAVE A PRIMARY DOCTOR --you should call your primary doctor and schedule an appointment IF YOU DO NOT HAVE A PRIMARY DOCTOR YOU CAN CALL OUR PHYSICIAN REFERRAL HOTLINE AT IF YOU CAN NOT AFFORD TO SEE A PHYSICIAN YOU CAN CHOSE FROM THE FOLLOWING [facility] [address] [facility] [address] [facility] [facility] [address] [facility] [facility] [address] [facility] [address] [facility]. [facility]. [address] Additional Instructions: Your physical exam is most consistent with a thrombosed external hemorrhoid. I recommend applying the ointment at least twice a day for the next 1 week. I also recommend soaking in warm water baths for 10 minutes for 4 times a day. This ultimately needs to be removed by general surgeon. Follow-up with your regular doctor for referral to a general surgeon. Return to the ED for any new or worsening symptoms. MONICA HOWARD PA-C Jul 26, 2018 07:34
== END 2018-07-26 05:36 | disposition home or self-care (01) ==
LOC: FTE 00:20
DX: O99.613 Diseases of the digestive system complicating pregnancy, third trimester (principal); K64.4 Residual hemorrhoidal skin tags; O99.513 Diseases of the respiratory system complicating pregnancy, third trimester; J45.909 Unspecified asthma, uncomplicated; Z3A.33 33 weeks gestation of pregnancy
CPT/HCPCS: 99284

== ENCOUNTER 2018-08-10 02:19 | Inpatient (IN) | payer BC, MEDICAID ==
[~2018-08-10] VITALS: Ht 160 cm; Wt 98.5 kg
[~2018-08-10 02:19] MED LIST changes: +HYDR25SU23 PR
[2018-08-10 02:37] VITALS: Ht 160 cm; Wt 98.5 kg
[2018-08-10 02:38] VITALS: BP 124/80; PULSE 88; RESP 20
[2018-08-10] MEDS: LACTATED RINGER'S 1,000 ML IV SCH ×3 (03:58→17:42)
--- NOTE | 2018-08-10 07:51 | HP ---
Date/Time of Note Date/Time of Note DATE: 08/10/18 TIME: 07:50 OB - History Hx of Present Free Text/Dictation @37+wks GA in early labor previous c/section : 2 Para: 1 Care: Good Care Ultrasounds: Normal mid trimester US Obstetrical Complications: None Medical Complications: None Past Family/Social History * Past Medical, Surgical, Family and Obstetric Histories reviewed from chart. OB Admission Exam Vital Signs Vital Signs Vital Signs Date Temp Pulse Resp B/P (MAP) Pulse Ox O2 O2 Flow FiO2 Time Delivery Rate 08/10/18 97.7 88 20 124/80 Room Air 02:38 (95) Physical Exam Abdomen: WNL Extremities: Normal Cervical Dilatation: None Effacement: 0% Station: Ballotable Membranes: Intact Heart Rate: 140's Accelerations: Accelerations Present Varibility: Moderate Contractions on Admission: 6-10 Minutes Apart Last 72 hours Lab Results CBC & BMP 08/10/18 03:50 OB Assessment/Plan Reason for admission: observation Other Assessment: PMH denies PSH previous c/s Plan: Expectant Management Other plan: IV hydration 24 hr observation SRIDHAR WOOD M.D. Aug 10, 2018 07:51
[2018-08-10] MEDS ORDERED: ACETAMINOPHEN 325 MG TAB PO PRN ×2 (09:00)
[2018-08-10] MEDS: CEFAZOLIN 2 GM/50 ML (PMX) 50 ML IVPB SCH ×2 (12:46→22:39)
[2018-08-10] MEDS: FERROUS SULFATE (EC) 325 MG TAB PO SCH (15:00)
[2018-08-10] MEDS: PRENATAL VITAMIN PO SCH (15:00)
[2018-08-11] MEDS: LACTATED RINGER'S 1,000 ML IV SCH ×2 (02:02→09:52)
[2018-08-11] MEDS: CEFAZOLIN 2 GM/50 ML (PMX) 50 ML IVPB SCH ×2 (05:59→14:02)
[2018-08-11] MEDS: FERROUS SULFATE (EC) 325 MG TAB PO SCH (09:51)
[2018-08-11] MEDS: PRENATAL VITAMIN PO SCH (09:51)
--- NOTE | 2018-08-12 05:37 | PREOPHP ---
DATE OF ADMISSION: 08/10/2018 HISTORY OF PRESENT ILLNESS: This is a 27-year-old lady, 2, para 1. Her EDC 09/08/2018 at 35 -5/7 weeks, admitted to labor and delivery area for observation. This patient complains of lower abd ominal pains and low back pains that started about few hours prior to admission and got worse up to t he time of admission. She had care in my [place] office and the care was uneventfu l. She had 1 previous section. PAST PERSONAL HISTORY: No history of TB. The patient has a history of asthma. ALLERGIES: NONE. GYNECOLOGIC HISTORY: She had menarche at the age of 12, every 28 days interval, 3 to 4 days duration and moderate in amount. FAMILY HISTORY: Mother has diabetes, hypertension and heart disease. OBSTETRIC HISTORY: She is 2, para 1. Her first delivery was in 2014 by . REVIEW OF SYSTEMS: CARDIOVASCULAR: No chest pains. RESPIRATORY: No cough. GASTROINTESTINAL: No diarrhea. No vomiting. GENITOURINARY: No dysuria. PHYSICAL EXAMINATION: GENERAL: Reveals a conscious, coherent lady and in no acute distress. VITAL SIGNS: Blood pressure 120/80, pulse rate 80 per minute, respirations 16 per minute. BREASTS, HEART AND LUNGS: Within normal limits. ABDOMEN: Soft. No organomegaly. Fundic height is 35 cm. heart tones are 140 per minute. PELVIC: Revealed the cervix to be closed, station floating in cephalic presentation with the bag of water intact. EXTREMITIES: No pedal edema. ADMITTING DIAGNOSIS: A 35-5/7 weeks' intrauterine with labor, rule out urinary tra ct infection. The patient had a urine test and showed urinary tract infection. The patient was planned to have IV hydration and to be given IV antibiotics. The plans were explaine d to the patient and she understood everything totally. The risks, benefits and alternatives were di scussed with her as well. Dictated By: FERNANDO ABDI/AMGY Conf#: [id number] DID#: [id number]
--- NOTE | 2018-08-12 05:49 | DS ---
DATE OF ADMISSION: 08/10/2018 DATE OF DISCHARGE: 08/11/2018 This is a 27-year-old lady, 2, para 1, EDC of 09/08/2018 at 35 and 5/7 weeks, admitted for ob servation. HISTORY OF PRESENT ILLNESS: See dictated history and physical. PHYSICAL EXAMINATION: See dictated history and physical. ADMITTING DIAGNOSES: 1. A 35 and 5/7 weeks intrauterine . 2. Rule out labor. 3. Rule out urinary tract infection. HOSPITAL COURSE: The patient had urine test and showed urinary tract infection. She was having mild irregular contractions. She was given IV hydration. She was given IV antibiotics. She received 4 doses of IV antibiotics and she felt well. Contractions disappeared and the pain had disappeared, so she was discharged home on 08/11/2018 on general diet and activity was restricted. She was counsele d. She was instructed. She was told to continue to take her iron and vitamins at home. She was natan d to come back to the hospital if there is any problem or concern. FINAL DIAGNOSES: 1. A 35 and 6/7 weeks' intrauterine . 2. Urinary tract infection. 3. labor. 4. One previous section. Dictated By: FERNANDO ABDI/MAGY Conf#: [id number] DID#: [id number]
== END 2018-08-11 15:40 | disposition home or self-care (01) | DRG 832 ==
LOC: OBT 02:19 → L-D 02:21 → MERGE 07:30 → OBT 08:37 → PP1 14:51
PROVIDERS: ADMIT Obstetrics & Gynecology; ATTEND Obstetrics & Gynecology
DX: O23.43 Unspecified infection of urinary tract in pregnancy, third trimester (principal); O47.03 False labor before 37 completed weeks of gestation, third trimester; Z3A.35 35 weeks gestation of pregnancy
CPT/HCPCS: 36415; 76815; 76818; 81001; 85025; 87086; 96360; 96361; G0463; J0690; J7120

== ENCOUNTER 2018-08-31 18:56 | Inpatient (IN) | payer BC ==
[~2018-08-31] VITALS: Ht 160 cm; Wt 99.3 kg
[~2018-08-31 18:56] MED LIST changes: +GUAI120S25 PO; -GUAI120S26 PO; +OXYTOCIN 30 UNITS/LR 500 ML BAG IV ONE
[2018-08-31] MEDS ORDERED: LACTATED RINGER'S 1,000 ML IV SCH ×2 (19:19→22:58)
--- NOTE | 2018-08-31 19:20 | TRIAGE ---
OB Triage Datetime Report Generated by CPN: 08/31/2018 19:20 Datetime: 08/31/2018 19:05 EGA: 38.6 Datetime: 08/31/2018 19:00 Assessment Type: Triage Maternal Assessment Level of Consciousness: Fully Conscious DTR's/Clonus: DTRs 2+; No Clonus Headache: Denies Blurred Vision: No Respiratory Effort: Unlabored; Regular Rhythm; Equal Expansion Breath Sounds, Left: Clear and Equal Breath Sounds, Right: Clear and Equal Nausea/Vomiting: Denies RUQ Epigastric Pain: Denies Lower Extremities Edema: None Degree: None Upper Extremities Edema: None Degree: None Facial Edema: None Fall Risk Assessment History of Falling: (0) No Secondary Diagnosis: (0) No Ambulatory Aid: (0) Bedrest/Nurse Assist IV Therapy: (0) No Gait: (0) Normal/Bedrest/Immobile Mental Status: (0) Oriented to Own Ability Fall Score: 0 Fall Risk Score Definition: No Risk: No action required Datetime: 08/31/2018 18:57 Time of Arrival: 08/31/2018 18:57 Arrived By: Wheelchair Arrived From: Home Chief Complaint: PT CAME IN C/O SROM SINCE 11:30AM AND HAVING UC'S SINCE THIS AM Movement: Present Contractions: Irregular Time Contractions Began: 08/31/2018 11:30 Contractions: 5-6 Rupture of Membranes: Ruptured Vaginal Discharge: Denies Recent Sexual Intercouse: Denies Abdominal Trauma: Not Applicable Additional Patient Complaints: NONE Time Provider Notified: 08/31/2018 19:10 Provider Notified: JERMAINE Initial Plan: PT ADMITTED
[2018-08-31 19:21] VITALS: BMI 31.3
[2018-08-31] MEDS ORDERED: CARBOPROST 250 MCG INJ IM PRN ×2 (19:30→23:00)
[2018-08-31] MEDS ORDERED: CEFAZOLIN 2 GM/50 ML (PMX) 50 ML IVPB SCH (19:30)
[2018-08-31] MEDS ORDERED: OXYTOCIN 30 UNITS/LR 500 ML IV PRN ×2 (19:30→23:00)
[2018-08-31] MEDS ORDERED: MISOPROSTOL 200 MCG TAB PR PRN ×2 (19:30→23:00)
[2018-08-31] MEDS ORDERED: METHYLERGONOVINE 0.2 MG INJ IM PRN ×2 (19:30→23:00)
[2018-08-31 19:57] VITALS: Ht 160 cm; Wt 99.3 kg
[2018-08-31 20:00] VITALS: BP 121/82; PULSE 89; RESP 18
--- NOTE | 2018-08-31 21:35 | PREOPHP ---
DATE OF ADMISSION: 08/31/2018 HISTORY OF PRESENT ILLNESS: This is a 27-year-old lady, 2, para 1, EDC 09/08/2018. She is a bout 38 and 6/7 weeks , admitted to labor and delivery area in labor. She has spontaneous ru ptured bag of water at 11:30 a.m. on 08/31/2018 followed by contractions. She started to have contra ctions a few hours prior to admission and got worse up to the time of admission. She is having moder ate to severe lower abdominal pains and low back pains. She had care in my [place] office a nd the care was uneventful. PAST PERSONAL HISTORY: No history of diabetes, TB, asthma. ALLERGIES: NO ALLERGY. SOCIAL HISTORY: The patient does not smoke. She does not drink. MEDICATIONS: She does not take any drugs except her iron and vitamins. GYNECOLOGIC HISTORY: She had menarche at the age of 12, every 28 days interval, 3 to 4 days duration , and moderate in amount. FAMILY HISTORY: Noncontributory. Mother has diabetes, hypertension and heart disease. She is 2, para 1. Her first delivery was by in 2014. REVIEW OF SYSTEMS: CARDIOVASCULAR: No chest pains. RESPIRATORY: No cough. GASTROINTESTINAL: No diarrhea, no vomiting. GENITOURINARY: No dysuria. PHYSICAL EXAMINATION: GENERAL: Reveals a conscious, coherent lady, in no acute distress. VITAL SIGNS: Her blood pressure 120/80, pulse rate 80 per minute, respirations 16 per minute. BREASTS, HEART AND LUNGS: Within normal limits. ABDOMEN: Soft. No organomegaly. Fundic height 37 cm. heart tones 140 per minute. Tender on the incision of the labia area. PELVIC: Revealed the cervix to be 2 to 3 cm dilated, 100% effaced, station floating in cephalic pres entation with the bag of water ruptured. Nitrazine test with a bag of water ruptured. Clear fluid w as noted. EXTREMITIES: No pedal edema. ADMITTING DIAGNOSIS: 38 and 6/7 weeks intrauterine in labor with previous section . The patient was planned to have a repeat . The procedures were explained to the patient and she understood everything totally. The risks, benefits, and alternatives to was explai aris as to go for vaginal delivery, but she wanted to go for . Procedures were explained and she understood everything totally. Dictated By: FERNANDO ABDI/MAGY Conf#: [id number] DID#: [id number]
--- NOTE | 2018-08-31 21:39 | PREAC ---
Date/Time of Note Date/Time of Note DATE: 08/31/18 TIME: 21:37 Anesthesia Eval and Record Evaluation Time Pre-Procedure Interview DATE: 08/31/18 TIME: 21:37 Age 27 Sex female NPO: 8 hrs Preoperative diagnosis IUP Planned procedure Repeat csection Past Medical History Past Medical History: Includes Pulm: Asthma GI: Obesity Surgery & Anesthesia Issues No known issue Meds Anticoagulation: No Beta Arin within 24 hr: No Reason Beta Arin not given: Pt. not on B-Arin Active Scripts Hydrocortisone Acetate (Anusol-Hc) 25 Mg Supp.rect, 1 SUPP PA BID PRN for HEMORROID PAIN/ITCHING, #12 SUPP.RECT Prov:MONICA HOWARD PA-C 07/26/18 Erythromycin Base (Erythromycin) 1 Gm Oint...g., 1 APPLIC LEFT EYE QID for 7 Days Prov:YANET LACEY PA-C 07/08/18 Albuterol Sulfate* (Proair HFA*) 8.5 Gm Hfa.aer.ad, 2 PUFF INH Q4, #1 INHALER Prov:NICOLA GUEVARA PA-C 04/04/18 Azithromycin* (Zithromax*) 250 Mg Tablet, 250 MG PO .ZPACK DIRECTED, #6 TAB TAKE 500 MG (2 TABS) THE FIRST DAY THEN 250 MG (1 TAB) DAYS 2-5 Prov:NICOLA GUEVARA PA-C 04/04/18 Metoclopramide* (Reglan*) 10 Mg Tablet, 10 MG PO Q6 PRN for NAUSEA AND/OR VOMITING, #10 TAB Prov:NICOLA GUEVARA PA-C 02/19/18 Ondansetron (Ondansetron Odt) 4 Mg Tab.rapdis, 4 MG PO Q6H PRN for NAUSEA AND/OR VOMITING, #10 TAB Prov:NICOLA GUEVARA PA-C 02/19/18 Cephalexin* (Keflex*) 500 Mg Capsule, 500 MG PO TID for 7 Days, #21 CAP Prov:SIMRAN,FRANCISCO 01/31/18 Ondansetron (Ondansetron Odt) 4 Mg Tab.rapdis, 4 MG PO Q6H PRN for NAUSEA AND/OR VOMITING, #10 TAB Prov:SIMRAN,FRANCISCO 01/31/18 Albuterol Sulfate* (Proair HFA*) 8.5 Gm Hfa.aer.ad, 2 PUFF INH Q4, #1 INHALER Prov:SIMRAN,FRANCISCO 01/31/18 Cephalexin* (Keflex*) 500 Mg Capsule, 500 MG PO QID for 10 Days, CAP Prov:CARLOS TELLES NP 10/03/17 Sulfamethoxazole/Trimethoprim* (Bactrim Ds* Tablet) 1 Each Tablet, 1 TAB PO BID, #20 TAB Prov:CARLOS TELLES NP 10/03/17 Hydroxyzine Hcl* (Hydroxyzine Hcl*) 25 Mg Tablet, 25 MG PO Q8H PRN for ITCHING, #30 TAB Prov:CARLOS TELLES NP 10/03/17 Ibuprofen* (Motrin*) 600 Mg Tab, 600 MG PO Q6H PRN for PAIN AND OR ELEVATED TEMP, #30 TAB Prov:CARLOS TELLES NP 12/18/16 Albuterol Sulfate* (Proair HFA*) 8.5 Gm Hfa.aer.ad, 2 PUFF INH Q4H PRN for WHEEZING AND SOB, #1 INHALER Prov:CARLOS TELLES NP 12/18/16 Fluticasone Propionate (Flonase Allergy Relief) 9.9 Ml [place].susp, 1 SPRAY NASAL BID, #1 BOTTLE TO EACH NOSTRIL Prov:CARLOS TELLES NP 12/18/16 Cetirizine Hcl* (Zyrtec*) 10 Mg Capsule, 10 MG PO DAILY, #30 TAB.CHEW Prov:CARLOS TELLES NP 12/18/16 Hddtencncfb-H-Uxpcvjiszi Hb* (Guaifenesin* DM Syrup) 120 Ml Syrup, 10 ML PO Q4H PRN for COUGH, #120 ML Prov:CARLOS TELLES NP 12/18/16 Cyclobenzaprine Hcl* (Cyclobenzaprine Hcl*) 10 Mg Tablet, 10 MG PO TID, #15 TAB Prov:CARLOS TELLES NP 09/10/16 Hydrocodone/Acetaminophen ([place] 5-325 Tablet) 1 Each Tablet, 1 TAB PO Q6H PRN for PAIN, #20 TAB Prov:CARLOS TELLES PRODUCT TESTER 09/10/16 Ibuprofen* (Motrin*) 600 Mg Tab, 600 MG PO Q6H PRN for PAIN AND OR ELEVATED TEMP, #30 TAB Prov:CARLOS TELLES PRODUCT TESTER 09/10/16 Erythromycin* (Erythromycin* Ophthalmic) 1 Applic Oint, 1 APPLIC LEFT EYE QID for 7 Days, EA Prov:NICOLA GUEVARAC 04/04/16 Aspirin/Acetaminophen/Caffeine (Excedrin Extra Strength Caplet) 1 Each Tablet, 1 EACH PO Q6, #30 TAB Prov:YANET LACEY PA-C 02/15/16 Erythromycin* (Erythromycin* Ophthalmic) 1 Applic Oint, 1 APPLIC LEFT EYE QID for 7 Days, EA Prov:YANET LACEY PA-C 02/15/16 Ibuprofen* (Motrin*) 600 Mg Tab, 600 MG PO Q6, #30 TAB Prov:MARGOT MANDUJANO PA-C 12/09/15 Tninutwezri-Clwxhhdwmlnauxzn-DX (Mucinex Severe Congest-Cough Liquid) 177 Ml Liquid, 20 ML PO Q8 for 10 Days, ML Prov:ARA FLORES PRODUCT TESTER 12/02/15 Hydrocodone Bit-Acetaminophen ([place]) 5-325 Mg Tablet, 1 TAB PO Q4H PRN for PAIN, #14 TAB Prov:ARI RENO DO 10/31/15 Ibuprofen* (Motrin*) 800 Mg Tab, 800 MG PO TID, #30 TAB Prov:ARCHIE RENOSTNIKA AAngel DO 10/31/15 Loratadine/Pseudoephedrine (CLARITIN-D 24 HOUR TABLET) 1 Each Tab.er.24h, 1 TAB PO DAILY, #7 TAB Prov:ARI RENO DO 10/31/15 Albuterol Sulfate* (Proair HFA*) 8.5 Gm Hfa.aer.ad, 2 PUFF INH Q4 for WHEEZING for 10 Days, INH Prov:JULIO CÉSAR TORRES MD 01/15/15 Prednisone* (Prednisone*) 20 Mg Tab, 40 MG PO DAILY for 4 Days, TAB START 01/16 Prov:JULIO CÉSAR TORRES MD 01/15/15 Reported Medications Multivit/Min/Fol Ac/Iron/Pren* ( S*) 1 Tab Tab, 1 TAB PO DAILY, TAB 01/14/15 Current Medications Lactated Ringer's 1,000 ml @ 125 mls/hr Q8H IV Last administered on 08/31/18at 19:56; Admin Dose 125 MLS/HR; Start 08/31/18 at 19:19 Cefazolin Sodium/ Dextrose 50 ml @ 100 mls/hr ONCE IVPB ; Start 08/31/18 at 19:30 Oxytocin/Lactated Ringer's 500 ml @ 0 mls/hr ONCE PRN IV .VAGINAL BLEEDING; Start 08/31/18 at 19:30 Methylergonovine Maleate (Methergine) 0.2 mg ONCE PRN IM .VAGINAL BLEEDING; Start 08/31/18 at 19:30 Carboprost Tromethamine (Hemabate) 250 mcg ONCE PRN IM .VAGINAL BLEEDING; Start 08/31/18 at 19:30 Misoprostol (Cytotec) 1,000 mcg ONCE PRN PA .VAGINAL BLEEDING; Start 08/31/18 at 19:30 Meds reviewed: Yes Allergies Coded Allergies: No Known Allergies (Verified Allergy, Mild, 08/31/18) Allergies Reviewed: Yes Labs/Studies Labs Reviewed: Reviewed by anesthesiologist Result Diagram: 08/31/18 1950 Laboratory Tests 08/31/18 19:50 test: Positive Studies: ECG Pre-procedure Exam Last vitals Vital Signs Date Temp Pulse Resp B/P (MAP) Pulse Ox O2 O2 Flow FiO2 Time Delivery Rate 08/31/18 98.0 89 18 121/82 98 Room Air 20:00 (95) Airway: Adequate mouth opening, Adequate thyromental dist Mallampati: Mallampati II Teeth: Normal Lung: Normal Heart: Normal ASA Physical Status ASA physical status: 2 Emergency: None Planned Anesthetic Neuraxial: Epidural Planned Pain Management Epidural Pre-operative Attestations Prior to commencing anesthesia and surgery, the patient was re-evaluated, there was verification of: *The patient's identity *The results of appropriate recent lab work and preoperative vital signs *The above evaluation not changing prior to induction *Anesthetic plan, risk benefits, alternative and complications discussed with patient/family; questions answered; patient/family understands, accepts and wishes to proceed. DEMETRIO LISA MD Aug 31, 2018 21:39
[2018-08-31] MEDS ORDERED: ONDANSETRON 4 MG INJ ONE (21:49)
[2018-08-31] MEDS ORDERED: morphine SULFATE/PF (10 MG/10 ML) INJ ONE (21:49)
[2018-08-31] MEDS ORDERED: OXYTOCIN 10 UNIT INJ ONE (21:49)
[2018-08-31] MEDS ORDERED: OXYTOCIN 30 UNITS/LR 500 ML IV SCH (22:58)
[2018-08-31] MEDS ORDERED: IBUPROFEN 800 MG TAB PO PRN (23:00)
[2018-08-31] MEDS ORDERED: LANOLIN HPA 1 PKT TOP PRN (23:00)
[2018-08-31] MEDS ORDERED: HYDROCODONE/APAP (5/325) TAB PO PRN (23:00)
[2018-08-31] MEDS ORDERED: METHYLERGONOVINE 0.2 MG TAB PO PRN (23:00)
--- NOTE | 2018-08-31 23:10 | PAC ---
Date/Time of Note Date/Time of Note DATE: 08/31/18 TIME: 23:09 Post-Anesthesia Notes Post-Anesthesia Note Last documented vital signs Vital Signs Date Temp Pulse Resp B/P (MAP) Pulse Ox O2 O2 Flow FiO2 Time Delivery Rate 08/31/18 98.0 89 18 121/82 98 Room Air 20:00 (95) Activity: WNL Respiratory function: WNL Cardiovascular function: WNL Mental status: Baseline Pain reasonably controlled: Yes Hydration appropriate: Yes Nausea/Vomiting absent: Yes Comments BP:105/56, P:88, Spo2:100%, T:98,9 DEMETRIO LISA MD Aug 31, 2018 23:10
[2018-08-31] MEDS ORDERED: ONDANSETRON 4 MG INJ IV PRN (23:30)
[2018-08-31] MEDS ORDERED: NALOXONE (0.4 MG/ML) INJ IV PRN (23:30)
[2018-08-31] MEDS ORDERED: morphine 2 MG INJ IV PRN (23:30)
[2018-09-01] VITALS (12 sets, daily range): BP systolic 99–134; BP diastolic 53–81; PULSE 73–85; RESP 16–18
[2018-09-01] MEDS: KETOROLAC 30 MG INJ IV PRN ×3 (02:04→22:12)
[2018-09-01] MEDS: DIPHENHYDRAMINE 50 MG INJ IV PRN ×2 (03:29→18:42)
[2018-09-01] MEDS: LACTATED RINGER'S 1,000 ML IV SCH ×2 (08:30→14:16)
[2018-09-01] MEDS ORDERED: BISACODYL 10 MG SUPP PR ONE (09:00)
[2018-09-01] MEDS ORDERED: FERROUS GLUCONATE (EC) 325 MG TAB PO SCH (10:00)
[2018-09-01] MEDS: SENNA/DOCUSATE NA (8.6MG/50MG) TAB PO SCH ×2 (10:02→21:27)
[2018-09-01] MEDS: FERROUS SULFATE (EC) 325 MG TAB PO SCH ×2 (12:37→21:27)
--- NOTE | 2018-09-01 21:22 | PN ---
Date/Time of Note Date/Time of Note DATE: 09/01/18 TIME: 21:21 Assessment/Plan VTE Prophylaxis Risk score (from Nsg)>0 risk: 3 SCD applied (from Ns): Yes Pharmacological prophylaxis: NA/contraindicated Pharm contraindication: low risk/ambulating Assessment/Plan Assessment/Plan POSTCSECTION DAY 1 CHRONIC IRON DEIFICIENCY ANEMIA ORDERED ADVANCE DIET TOLERATED CBC ON 3RD POSTOP DAY Result Diagram: 09/01/18 0829 09/01/18 0829 Results 24hrs Laboratory Tests Test 09/01/18 06:15 09/01/18 08:29 Lab Scanned Report REFERENCE LAB White Blood Count 10.0 # Red Blood Count 3.21 L Hemoglobin 8.9 L Hematocrit 27.7 L Mean Corpuscular Volume 86.3 Mean Corpuscular Hemoglobin 27.7 L Mean Corpuscular Hemoglobin Concent 32.1 Red Cell Distribution Width 14.1 Platelet Count 129 #L Mean Platelet Volume 11.6 H Immature Granulocytes % 0.800 H Neutrophils % 71.5 Lymphocytes % 19.8 Monocytes % 7.2 Eosinophils % 0.6 Basophils % 0.1 Nucleated Red Blood Cells % 0.0 Immature Granulocytes # 0.080 H Neutrophils # 7.1 Lymphocytes # 2.0 Monocytes # 0.7 Eosinophils # 0.1 Basophils # 0.0 Nucleated Red Blood Cells # 0.0 Sodium Level 137 Potassium Level 3.6 Chloride Level 109 Carbon Dioxide Level 23 Anion Gap 5 Blood Urea Nitrogen 5 L Creatinine 0.47 Est Glomerular Filtrat Rate mL/min > 60 Glucose Level 82 Calcium Level 8.7 Subjective 24 Hr Interval Summary Free Text/Dictation POST CSECTION DAY 1 COMPLAIN OF INCISIONAL PAINS GOOD URINE OUTPUT PASSING GAS PER RECTUM NO BOWEL MOVEMENT YET Exam/Review of Systems Exam Vitals Vital Signs Date Temp Pulse Resp B/P (MAP) Pulse Ox O2 O2 Flow FiO2 Time Delivery Rate 09/01/18 98.6 84 18 116/62 97 Room Air 19:45 (80) Intake and Output 08/31/18 08/31/18 09/01/18 1515:00 23:00 07:00 IntakeIntake Total 3095 ml OutputOutput Total 1460 ml BalanceBalance 1635 ml Exam VITAL SIGNS STABLE: YES AFEBRILE: YES BREAST NOT ENGORGED, NON-TENDER, NO APPRECIABLE MASS: YES LUNGS CLEAR, NO RALES, WHEEZES, RHONCHI: YES SINUS RHYTHM WITHOUT MURMUR: YES ABDOMEN: NON-TENDER FUNDUS: BELOW UMBILICUS BOWEL SOUNDS: PRESENT UTERUS: FIRM INCISION (CLEAN, DRY, AND INTACT): YES LOCHIA: LIGHT DEEP TENDON REFLEXES: 0 EXTREMITIES: NO CALF TENDERNESS EDEMA SCALE: NONE Results Results 24hrs Laboratory Tests Test 09/01/18 06:15 09/01/18 08:29 Lab Scanned Report REFERENCE LAB White Blood Count 10.0 # Red Blood Count 3.21 L Hemoglobin 8.9 L Hematocrit 27.7 L Mean Corpuscular Volume 86.3 Mean Corpuscular Hemoglobin 27.7 L Mean Corpuscular Hemoglobin Concent 32.1 Red Cell Distribution Width 14.1 Platelet Count 129 #L Mean Platelet Volume 11.6 H Immature Granulocytes % 0.800 H Neutrophils % 71.5 Lymphocytes % 19.8 Monocytes % 7.2 Eosinophils % 0.6 Basophils % 0.1 Nucleated Red Blood Cells % 0.0 Immature Granulocytes # 0.080 H Neutrophils # 7.1 Lymphocytes # 2.0 Monocytes # 0.7 Eosinophils # 0.1 Basophils # 0.0 Nucleated Red Blood Cells # 0.0 Sodium Level 137 Potassium Level 3.6 Chloride Level 109 Carbon Dioxide Level 23 Anion Gap 5 Blood Urea Nitrogen 5 L Creatinine 0.47 Est Glomerular Filtrat Rate mL/min > 60 Glucose Level 82 Calcium Level 8.7 Medications Medication Current Medications Cefazolin Sodium/ Dextrose 50 ml @ 100 mls/hr ONCE IVPB ; Start 08/31/18 at 19:30 Methylergonovine Maleate (Methergine) 0.2 mg Q6H PRN PO .VAGINAL BLEEDING; Start 08/31/18 at 23:00 Acetaminophen/ Hydrocodone Bitart ([place] (5/325)) 1 tab Q4H PRN PO MODERATE PAIN LEVEL 4-6; Start 08/31/18 at 23:00 Acetaminophen/ Hydrocodone Bitart ([place] (5/325)) 2 tab Q4H PRN PO SEVERE PAIN LEVEL 7-10; Start 08/31/18 at 23:00 Simethicone (Mylicon) 160 mg Q8H PRN PO .GAS; Start 08/31/18 at 23:00 Senna/Docusate Sodium (Senokot-S) 1 tab BID PO Last administered on 09/01/18at 10:02; Admin Dose 1 TAB; Start 09/01/18 at 09:00 Lanolin (Lanolin Hpa) 1 applic BEDSIDE MEDICATION PRN TOP .NIPPLES; Start 08/31/18 at 23:00 Diphtheria/ Tetanus/Acell Pertussis (Adacel) 0.5 ml ONCE ONCE IM* ; Start 09/03/18 at 09:00; Stop 09/03/18 at 09:01 Measles/Mumps/ Rubella Vaccine Live (Mmr Ii Vaccine) 0.5 ml ONCE ONCE SC* ; Start 09/03/18 at 09:00; Stop 09/03/18 at 09:01 Oxytocin/Lactated Ringer's 500 ml @ 0 mls/hr ONCE PRN IV .VAGINAL BLEEDING; Start 08/31/18 at 23:00 Methylergonovine Maleate (Methergine) 0.2 mg ONCE PRN IM .VAGINAL BLEEDING; Start 08/31/18 at 23:00 Carboprost Tromethamine (Hemabate) 250 mcg ONCE PRN IM .VAGINAL BLEEDING; Start 08/31/18 at 23:00 Misoprostol (Cytotec) 1,000 mcg ONCE PRN [place] .VAGINAL BLEEDING; Start 08/31/18 at 23:00 Naloxone HCl (Narcan) 0.1 mg Q2M PRN IV .RESP RATE; Start 08/31/18 at 23:30; Stop 09/01/18 at 23:29 Ketorolac Tromethamine (Toradol) 30 mg Q6H PRN IV PAIN AFTER CSECTION Last administered on 09/01/18at 11:36; Admin Dose 30 MG; Start 08/31/18 at 23:30; Stop 09/01/18 at 23:29 Morphine Sulfate (morphine) 2 mg Q3H PRN IV .PAIN 1-5 Last administered on 09/01/18at 16:21; Admin Dose 2 MG; Start 08/31/18 at 23:30; Stop 09/01/18 at 23:29 Diphenhydramine HCl (Benadryl) 25 mg Q6H PRN IV .ITCHING Last administered on 09/01/18at 18:42; Admin Dose 25 MG; Start 08/31/18 at 23:30; Stop 09/01/18 at 23:29 Ondansetron HCl (Zofran Inj) 4 mg Q6H PRN IV .NAUSEA/VOMITING; Start 08/31/18 at 23:30; Stop 09/01/18 at 23:29 Miscellaneous Information (* Miscellaneous Pharmacy Order) Duramorph: 0.2 mg Spi... GIVEN XX ; Start 08/31/18 at 23:30 Ibuprofen (Motrin) 800 mg Q8 PRN PO MILD PAIN LEVEL 1-3; Start 09/01/18 at 23:30 Lactated Ringer's 1,000 ml @ 125 mls/hr Q8H IV Last administered on 09/01/18at 14:16; Admin Dose 125 MLS/HR; Start 09/01/18 at 08:30 Ferrous Sulfate (Ferrous Sulfate (Ec)) 325 mg TID PO Last administered on 09/01/18at 12:37; Admin Dose 325 MG; Start 09/01/18 at 13:00 Magnesium Hydroxide (Milk Of Mag) 30 ml BID PO ; Start 09/02/18 at 06:00 Bisacodyl (Dulcolax Supp) 10 mg BID [place] ; Start 09/02/18 at 06:00 FERNANDO DEAN MD Sep 01, 2018 21:22
[2018-09-02] MEDS: LACTATED RINGER'S 1,000 ML IV SCH (00:30)
[2018-09-02] MEDS: HYDROCODONE/APAP (5/325) TAB PO PRN ×4 (02:58→23:46)
[2018-09-02 04:15] VITALS: BP 117/64; PULSE 80; RESP 16
[2018-09-02] MEDS: MAGNESIUM HYDROXIDE 30ML CUP PO SCH ×3 (06:22→20:55)
[2018-09-02] MEDS: BISACODYL 10 MG SUPP PR SCH ×3 (07:11→21:00)
--- NOTE | 2018-09-02 07:14 | OPR ---
DATE OF OPERATION: 08/31/2018 PREOPERATIVE DIAGNOSIS: A 38 and 6/7 weeks intrauterine in labor with 1 previous , patient desires repeat section. POSTOPERATIVE DIAGNOSIS: A 38 and 6/7 weeks intrauterine in labor with 1 previous , patient desires repeat section. OPERATION PERFORMED: Repeat low transverse section. SURGEON: Fernando Arellano MD. ANESTHESIA: Spinal. PRESSURE TANK OPERATOR: Dr. Liao. ANESTHESIOLOGIST: Dr. Harper. OPERATIVE TECHNIQUE: Under spinal anesthesia, the patient was prepped and draped in the usual fashio n for abdominal surgery. After checking for the effect of the anesthesia, the previous Pfannenstiel scar was excised. A 12 cm skin incision was performed. The incision was carried from the skin up to the fascia. Upon opening the skin up to the fascia, small blood vessels were noted to be oozing and these were all cauterized. Fascia was opened transversely followed by splitting the muscles vertica lly and the peritoneum vertically. Upon opening the abdominal cavity, the bladder blade was put in p lace. A small sarah was performed from the serosa up to the endometrium on the lower uterine segment and the sarah was carried sideways with the aid of my 2 fingers. My left hand was inserted on the low er segment of the uterus and the bag of water was ruptured. Clear fluid was noted. Then baby's head was delivered with good fundal pressure. The baby's airways was quickly suctioned with amniotic flu id. There was 1 loop of tight cord around the baby's neck that needs to be released prior to the del molly of the rest of the body of the baby. Baby's cord was clamped after 30 seconds and then the bab y was handed to the NICU team. The placenta was delivered manually and complete. The uterus was ext eriorized. The uterus was cleansed with wet lap sponge to make sure that no membranes were lef t behind. After correct sponge count, the uterus was closed in the usual fashion using #1 chromic fo r the first layer, continuous locking suture was used followed by #1 chromic for the second layer, im bricating sutures were used. Bleeders were checked, and there was no bleeding noted. Both tubes and ovaries were inspected. They were healthy looking. The broad ligament were checked for any hematom a and there was none noted. The uterus was put back to the pelvic cavity. Once again, uterine incis ion was checked for any bleeders and there was no bleeding noted. After correct sponge count, needle count and there was no bleeding noted. The uterus was put back to the pelvic cavity. Once again, u terine incision was checked for any bleeders and there was no bleeding noted. After correct sponge c ount, needle count and instrument count as confirmed by the lead pharmacy technician and automotive machinist apprentice, the abdomen wa s closed in the usual fashion using 0 Vicryl for the peritoneum, 0 Vicryl for the muscles, for the fa scia 0 Vicryl continuous stitch was used followed by a few [id number] suture for the subcutaneou s tissue, it was closed with 3-0 Vicryl and the skin was closed with 3-0 Vicryl, subcuticular suture was used. The patient tolerated the procedure well. Estimated blood loss about 600 mL. Vital signs were stable during and after the procedure. She delivered a healthy baby girl, 8 and 9, at 22 :19 p.m., 08/31/2018 weighing 7 pounds 14 ounces, 3580 grams, 19 inches long. Dictated By: FERNANDO ABDI/AMGY Conf#: [id number] DID#: [id number]
[2018-09-02 08:00] VITALS: BP 111/75; PULSE 77; RESP 18
[2018-09-02] MEDS: SENNA/DOCUSATE NA (8.6MG/50MG) TAB PO SCH ×2 (09:00→20:54)
[2018-09-02] MEDS ORDERED: MAGNESIUM HYDROXIDE 30ML CUP PO SCH (09:00)
[2018-09-02] MEDS: FERROUS SULFATE (EC) 325 MG TAB PO SCH ×3 (10:03→20:54)
[2018-09-02] MEDS: IBUPROFEN 800 MG TAB PO PRN (12:04)
[2018-09-02 16:04] VITALS: BP 110/73; PULSE 96; RESP 18
--- NOTE | 2018-09-02 18:12 | PN ---
Date/Time of Note Date/Time of Note DATE: 09/02/18 TIME: 18:11 Assessment/Plan VTE Prophylaxis Risk score (from Nsg)>0 risk: 4 SCD applied (from Ns): No SCD contraindicated: low risk/ambulating Pharmacological prophylaxis: NA/contraindicated Pharm contraindication: low risk/ambulating Assessment/Plan Assessment/Plan POST CSECTION DAY 2 CHRONIC IRON DEFICIENCY ANEMIA HOME TOMORROW CBC TOMORROW COUNSELED INSTRUCTED PRESCRIPTION GIVEN FOR PAIN RETURN TO CLINIC IN 2 WEEKS CALL OFFICE IF THERE IS ANY PROBLEM OR CONCERN CONTINUE WITH VITAMINS OD AND FERROUS SULFATE 325MG PO TID DIET ADVISED Result Diagram: 09/01/18 0829 09/01/18 0829 Subjective 24 Hr Interval Summary Free Text/Dictation POST CSECTION DAY 2 LITTLE BOWEL MOVEMENT GOOD URINE OUTPUT FEELS LESS INCISIONAL PAINS Exam/Review of Systems Exam Vitals Vital Signs Date Temp Pulse Resp B/P (MAP) Pulse Ox O2 O2 Flow FiO2 Time Delivery Rate 09/02/18 98.1 96 18 110/73 Room Air 16:04 (85) 09/01/18 97 19:45 Intake and Output 09/01/18 09/01/18 09/02/18 1515:00 23:00 07:00 IntakeIntake Total 875 ml 1270 ml 150 ml OutputOutput Total 1200 ml 2200 ml 700 ml BalanceBalance -325 ml -930 ml -550 ml Exam VITAL SIGNS STABLE: YES AFEBRILE: YES BREAST NOT ENGORGED, NON-TENDER, NO APPRECIABLE MASS: YES LUNGS CLEAR, NO RALES, WHEEZES, RHONCHI: YES SINUS RHYTHM WITHOUT MURMUR: YES ABDOMEN: NON-TENDER FUNDUS: BELOW UMBILICUS BOWEL SOUNDS: PRESENT UTERUS: FIRM INCISION (CLEAN, DRY, AND INTACT): YES LOCHIA: LIGHT DEEP TENDON REFLEXES: 0 EXTREMITIES: NO CALF TENDERNESS EDEMA SCALE: NONE Medications Medication Current Medications Cefazolin Sodium/ Dextrose 50 ml @ 100 mls/hr ONCE IVPB ; Start 08/31/18 at 19:30 Methylergonovine Maleate (Methergine) 0.2 mg Q6H PRN PO .VAGINAL BLEEDING; Start 08/31/18 at 23:00 Acetaminophen/ Hydrocodone Bitart ([place] (5/325)) 1 tab Q4H PRN PO MODERATE PAIN LEVEL 4-6; Start 08/31/18 at 23:00 Acetaminophen/ Hydrocodone Bitart ([place] (5/325)) 2 tab Q4H PRN PO SEVERE PAIN LEVEL 7-10 Last administered on 09/02/18at 10:03; Admin Dose 2 TAB; Start 08/31/18 at 23:00 Simethicone (Mylicon) 160 mg Q8H PRN PO .GAS; Start 08/31/18 at 23:00 Senna/Docusate Sodium (Senokot-S) 1 tab BID PO Last administered on 09/01/18at 21:27; Admin Dose 1 TAB; Start 09/01/18 at 09:00 Lanolin (Lanolin Hpa) 1 applic BEDSIDE MEDICATION PRN TOP .NIPPLES; Start 08/31/18 at 23:00 Diphtheria/ Tetanus/Acell Pertussis (Adacel) 0.5 ml ONCE ONCE IM* ; Start 09/03/18 at 09:00; Stop 09/03/18 at 09:01 Measles/Mumps/ Rubella Vaccine Live (Mmr Ii Vaccine) 0.5 ml ONCE ONCE SC* ; Start 09/03/18 at 09:00; Stop 09/03/18 at 09:01 Oxytocin/Lactated Ringer's 500 ml @ 0 mls/hr ONCE PRN IV .VAGINAL BLEEDING; Start 08/31/18 at 23:00 Methylergonovine Maleate (Methergine) 0.2 mg ONCE PRN IM .VAGINAL BLEEDING; Start 08/31/18 at 23:00 Carboprost Tromethamine (Hemabate) 250 mcg ONCE PRN IM .VAGINAL BLEEDING; Start 08/31/18 at 23:00 Misoprostol (Cytotec) 1,000 mcg ONCE PRN [place] .VAGINAL BLEEDING; Start 08/31/18 at 23:00 Miscellaneous Information (* Miscellaneous Pharmacy Order) Duramorph: 0.2 mg Spi... GIVEN XX ; Start 08/31/18 at 23:30 Ibuprofen (Motrin) 800 mg Q8 PRN PO MILD PAIN LEVEL 1-3 Last administered on 09/02/18at 12:04; Admin Dose 800 MG; Start 09/01/18 at 23:30 Lactated Ringer's 1,000 ml @ 125 mls/hr Q8H IV Last administered on 09/01/18at 14:16; Admin Dose 125 MLS/HR; Start 09/01/18 at 08:30 Ferrous Sulfate (Ferrous Sulfate (Ec)) 325 mg TID PO Last administered on 09/02/18at 13:13; Admin Dose 325 MG; Start 09/01/18 at 13:00 Magnesium Hydroxide (Milk Of Mag) 30 ml BID PO Last administered on 09/02/18at 06:22; Admin Dose 30 ML; Start 09/02/18 at 06:00 Bisacodyl (Dulcolax Supp) 10 mg BID [place] Last administered on 09/02/18at 07:11; Admin Dose 10 MG; Start 09/02/18 at 06:00 FERNANDO DEAN MD Sep 02, 2018 18:12
[2018-09-02 20:05] VITALS: BP 122/83; PULSE 88; RESP 19
[2018-09-03] MEDS: IBUPROFEN 800 MG TAB PO PRN ×2 (02:01→16:10)
[2018-09-03 03:50] VITALS: BP_SYST 112; BP_SYST 99; BP_DIAS 59; BP_DIAS 66; PULSE 65; PULSE 78; RESP 18; RESP 19
[2018-09-03 08:30] VITALS: BP 110/58; PULSE 72; RESP 18
[2018-09-03] MEDS: BISACODYL 10 MG SUPP PR SCH (09:00)
[2018-09-03] MEDS ORDERED: MEASLES,MUMPS,RUBELLA VACCINE INJ SC* ONE (09:00)
[2018-09-03] MEDS: MAGNESIUM HYDROXIDE 30ML CUP PO SCH (09:00)
[2018-09-03] MEDS ORDERED: DIPHTH/TET/ACEL PERTUSS (ADULT) 0.5 ML VIAL IM* ONE ×2 (09:00→17:42)
[2018-09-03] MEDS: HYDROCODONE/APAP (5/325) TAB PO PRN (09:38)
[2018-09-03] MEDS: SENNA/DOCUSATE NA (8.6MG/50MG) TAB PO SCH (09:38)
[2018-09-03] MEDS: FERROUS SULFATE (EC) 325 MG TAB PO SCH ×2 (09:41→13:09)
[2018-09-03 16:00] VITALS: BP 109/54; PULSE 102; RESP 18
--- NOTE | 2018-09-04 18:59 | DELSUM ---
Delivery Summary A-C Datetime Report Generated by CPN: 09/04/2018 18:59 DELIVERY PERSONNEL Wire Fence Erector: Quiñones, Lernanie MATERNAL INFORMATION Delivery Anesthesia: Spinal Delivery QBL (ml): 600 LABOR SUMMARY EDC: 09/08/2018 00:00 No. Babies in Womb: 1 LABOR INFORMATION Onset of Labor: 08/31/2018 11:30 Group B Beta Strep: Negative Reason Steroids Not Administered: Not Applicable MEMBRANES Membranes Rupture Method: Spontaneous Rupture of Membranes: 08/31/2018 11:30 Length of Rupture (hr): 10.82 Amniotic Fluid Color: Clear Amniotic Fluid Amount: Moderate Amniotic Fluid Odor: Normal STAGES OF LABOR Stage 3 hr: 0 Stage 3 min: 2 Total Time in Labor hr: 10 Total Time in Labor min: 51 CSECTION DELIVERY Primary Indication: N/A Secondary Indication: Repeat Elective CSection Incidence: Repeat CSection Incision: Lower Uterine Transverse BABY A INFORMATION Delivery Date/Time: 08/31/2018 22:19 Method of Delivery: Born in Route : No : N/A Forceps: N/A Vacuum Extraction: N/A Shoulder Dystocia : N/A SHOULDER DYSTOCIA BABY A Delivery Date/Time: 08/31/2018 22:19 PRESENTATION/POSITION BABY A Presentation: Cephalic Cephalic Presentation: Vertex Breech Presentation: N/A PLACENTA INFORMATION BABY A Placenta Delivery Time : 08/31/2018 22:21 Placenta Method of Delivery: Manual Removal Placenta Status: Delivered SCORES BABY A Heart Rate 1 min: >100 bpm Resp Effort 1 min: Good Cry Reflex Irritability 1 min: Cough/Sneeze/Pulls Away Muscle Tone 1 min: Active Motion Color 1 min: Blue/Pale SCORE 1 MIN: 8 Heart Rate 5 min: >100 bpm Resp Effort 5 min: Good Cry Reflex Irritability 5 min: Cough/Sneeze/Pulls Away Muscle Tone 5 min: Active Motion Color 5 min: Body Perley, Extremit Blue SCORE 5 MIN: 9 INFANT INFORMATION BABY A Gestational Age at Delivery: 38.6 Gestational Status: Early Term- 37- 38.6 Weeks Outcome : Liveborn Condition : Stable Sex: Female IDENTIFICATION/MEDS BABY A ID Band Number: [id number] ID Band Location: Right Leg; Left Arm Sensor Applied: Yes Sensor Number: [id number] Sensor Location : Cord Clamp Vitamin K Given : Not Given Erythromycin Given: Not Given WEIGHT/LENGTH BABY A Infant Birthweight (gm): 3580 Weight (lb): 7 Weight (oz): 14 Infant Length (in): 19.00 Infant Length (cm): 48.26 CORD INFORMATION BABY A No. Cord Vessels: 3 Nuchal Cord : N/A Cord Blood Taken: Yes Suction: Mouth; Nose ASSESSMENT BABY A Complications: None Physical Findings at Delivery: Within Normal Limits Respirations: Appears Normal Director Loan/ALS Called : No Care By: Mallorie Transferred To: Remains with Mother
--- NOTE | 2018-09-06 09:07 | DS ---
DATE OF ADMISSION: 08/31/2018 DATE OF DISCHARGE: 09/03/2018 This is a 27-year-old lady, 2, para 1, EDC 09/08/2018 at 38-6/7 weeks, admitted to labor and delivery area in labor. HISTORY OF PRESENT ILLNESS: See dictated history and physical. PHYSICAL EXAMINATION: See dictated history and physical. ADMITTING DIAGNOSIS: 38-6/7 week's intrauterine in labor with previous section. Patient underwent a repeat . She underwent a repeat on 08/31/2018. She tolerated the procedure well. She did have good course. The diet was advanced from liquid to gene ral diet. She had good bowel movement . She has less pain on the third day. S he was discharged home on the third day on general diet and activity was restricted. She was counseled. She was instructed. She was told to continue to take her iron and vitamins at home. She was told to come back to the clinic in 2 weeks. She was given prescription for pain. Hematocrit on discharge 31.2, hemoglobin 9.6. FINAL DIAGNOSIS: Chronic iron deficiency anemia, 38-6/7 weeks intrauterine in labor with p revious delivered. Dictated By: FERNANDO ABDI/MAGY Conf#: [id number] DID#: [id number]
== END 2018-09-03 18:50 | disposition home or self-care (01) | DRG 788 ==
LOC: OBT 18:56 → L-D 18:57 → OBT 19:10 → L-D 19:30 → PP1 09-01 02:38
PROVIDERS: ADMIT Obstetrics & Gynecology; ATTEND Obstetrics & Gynecology
PROC: 10D00Z1 Extraction of Products of Conception, Low, Open Approach (ICD-10-PCS; principal; 2018-08-31 22:00)
DX: O65.5 Obstructed labor due to abnormality of maternal pelvic organs (principal); O99.013 Anemia complicating pregnancy, third trimester; O34.211 Maternal care for low transverse scar from previous cesarean delivery; Z3A.38 38 weeks gestation of pregnancy; Z37.0 Single live birth
CPT/HCPCS: 80048; 85025; 85610; 85730; 86592; 86850; 86900; 86901; 90715; 99464; G0463; J1200; J1885; J2270; J2274; J2405; J2590; J7120